=== PATIENT | male | born 1930 | race Caucasian/White ===

== ENCOUNTER 2017-04-13 08:04 | Day surgery (SDC) | payer MEDICARE, BC ==
[~2017-04-13] VITALS: Ht 177.8 cm; Wt 63.5 kg
[2017-04-13] VITALS (8 sets, daily range): BP systolic 113–136; BP diastolic 41–86
[2017-04-13] MEDS ORDERED: ASPIRIN81 MG ORAL (08:59)
[2017-04-13] MEDS ORDERED: ANTACID GT (08:59)
[2017-04-13] MEDS ORDERED: SIMVASTATIN20 MG ORAL (08:59)
[2017-04-13] MEDS ORDERED: Propofol 200mg/20ml IV ONE (10:00)
[2017-04-13] MEDS ORDERED: Lidocaine 1% MPF 10mg/ml 5ml ONE (10:00)
[2017-04-13] MEDS ORDERED: Midazolam 2mg/2ml Inj ONE (10:00)
[2017-04-13] MEDS ORDERED: LR 1000ml ONE (10:00)
[2017-04-13] MEDS ORDERED: Alfentanil 2ml Inj ONE (10:00)
[2017-04-13] MEDS ORDERED: LR 1000ml 1,000 ML IVLG SCH (10:22)
--- NOTE | 2017-04-13 10:22 | Anethesia Preoperative Eval ---
Anesthesia Pre-op PMH/ROS General Date of Evaluation: Apr 13, 2017 Anesthesiologist: Adin ASA Score: ASA 3 Mallampati Score Class I : Soft palate, uvula, fauces, pillars visible Class II: Soft palate, uvula, fauces visible Class III: Soft palate, base of uvula visible Class IV: Only hard plate visible Mallampati Classification: Class II Surgeon: Jarrett Diagnosis: Abd Pain Surgical Procedure: EUS/EGD G Tube Change Anesthesia History: none Family History: no anesthesia problems Allergies: Coded Allergies: No Known Allergies (Unverified , 04/10/17) Medications: see eMAR Past Medical History Cardiovascular: Reports: HTN Gastrointestinal/Genitourinary: Reports: other - Renal, Prostate CA, Colon SX, Ulcerative Colitis Anesthesia Pre-op Phys. Exam Physician Exam Last Vital Signs Date Time Temp Pulse Resp B/P (MAP) Pulse Ox O2 Delivery O2 Flow Rate FiO2 04/13/17 09:01 98.6 53 20 136/59 98 Room Air Constitutional: NAD Neurologic: CN 2-12 intact Cardiovascular: RRR Respiratory: CTA Gastrointestinal: S/NT/ND Airway Exam Mallampati Score: Class II MO: limited ROM: limited Teeth: missing, intact Anesthesia Pre-op A/P Risk Assessment & Plan Assessment: ASA 3 Plan: GA Status Change Before Surgery: Donny Maciel MD Apr 13, 2017 10:22
--- NOTE | 2017-04-13 10:25 | Immediate Post-Op Evaluation ---
Immediate Post-Op Evalulation Immediate Post-Op Evalulation Procedure: EUS/EGD G Tube Change Date of Evaluation: Apr 13, 2017 Time of Evaluation: 11:07 IV Fluids: 700 LR Blood Products: 0 Estimated Blood Loss: 1 Urinary Output: 0 Blood Pressure Systolic: 116 Blood Pressure Diastolic: 43 Pulse Rate: 47 Respiratory Rate: 16 O2 Sat by Pulse Oximetry: 97 Temperature (Fahrenheit): 97.3 Pain Score (1-10): 1 Nausea: No Vomiting: No Complications 0 Patient Status: awake, reacts, patent, none Hydration Status: adequate Donny Oakley MD Apr 13, 2017 10:25
--- NOTE | 2017-04-13 10:26 | 48 Hour Post Anesthesia Eval ---
Post Anesthesia Evaluation Procedure: EUS/EGD G Tube Change Date of Evaluation: Apr 13, 2017 Time of Evaluation: 13:11 Blood Pressure Systolic: 143 0: 74 Pulse Rate: 56 Respiratory Rate: 18 Temperature (Fahrenheit): 98.3 O2 Sat by Pulse Oximetry: 95 Airway: patent Nausea: No Vomiting: No Pain Intensity: 1 Hydration Status: adequate Cardiopulmonary Status: Stable Mental Status/LOC: patient returned to baseline Follow-up Care/Observations: 0 Post-Anesthesia Complications: 0 Follow-up care needed: ready to discharge Donny Oakley MD Apr 13, 2017 10:26
[2017-04-13] MEDS ORDERED: Norco 5mg/325mg tab ORAL PRN (10:30)
[2017-04-13] MEDS ORDERED: fentaNYL 100 mcg/2 mL IV PRN (10:30)
[2017-04-13] MEDS ORDERED: Hydromorphone 0.5mg/0.5ml inj IVP PRN (10:30)
[2017-04-13] MEDS ORDERED: Metoclopramide 10mg/2ml Inj IVP PRN (10:30)
[2017-04-13] MEDS ORDERED: Ketorolac 60mg Inj IV PRN (10:30)
[2017-04-13] MEDS ORDERED: Norco 7.5mg/325mg tab ORAL PRN (10:30)
[2017-04-13] MEDS ORDERED: Ketorolac 30mg Inj IV PRN (10:30)
[2017-04-13] MEDS ORDERED: Midazolam 2mg/2ml Inj IVP PRN (10:30)
[2017-04-13] MEDS ORDERED: Atropine Inj 1mg/10ml Syr IV PRN (10:30)
[2017-04-13] MEDS ORDERED: LORazepam Inj 2mg/ml 1ml IV PRN (10:30)
[2017-04-13] MEDS ORDERED: DiphenhydrAMINE 50mg/ml Inj IVP PRN (10:30)
[2017-04-13] MEDS ORDERED: oxyCODONE HCL/Acetaminophen 5/325mg ORAL PRN (10:30)
--- NOTE | 2017-04-13 10:42 | Endoscopy Procedure Note ---
Endoscopy Procedure Note Indication for Procedure: achalasia Procedures Performed: EGD, other - EUS Operative Findings/Diagnosis: duodenitis Specimen: yes Pt Tolerated Procedure Well: Yes Estimated Blood Loss: none Anesthesiologist: sathish Anesthesia: MAC Implant(s) used?: No 50 yrs or older w/o bx or poly: Not Applicable 10yrs. F/U not recommended: Not Applicable JULIO CESAR RUGGIERO Apr 13, 2017 10:42
--- NOTE | 2017-04-13 15:04 | Pre-Procedure Note/Attestation ---
Pre-Procedure Note/Attestation Complete Prior to Procedure Planned Procedure: not applicable Procedure Narrative: egd/eus Indications for Procedure Pre-Operative Diagnosis: achalasia Attestation I attest that I discussed the nature of the procedure; its benefits; risks and complications; and alternatives (and the risks and benefits of such alternatives ), prior to the procedure, with the patient (or the patient's legal car sales representative). I attest that, if there was a reasonable possibility of needing a blood transfusion, the patient (or the patient's legal car sales representative) was given the [facility] standardized written summary, pursuant to the [place] Blood Safety Act ([place] Health and Safety Code # 1645, as amended). I attest that I re-evaluated the patient just prior to the surgery and that there has been no change in the patient's H&P, except as documented below: JULIO CESAR RUGGIERO Apr 13, 2017 15:04
--- NOTE | 2017-04-13 15:05 | Short Stay Surgery H&P ---
History of Present Illness History of Present Illness Chief Complaint dysphagia DEBORAH Beltran is a 86 year old male who was admitted on for Submucosa Lesion Patient History Allergies: Coded Allergies: No Known Allergies (Unverified , 04/10/17) PAST MEDICAL HISTORY: (1) Achalasia Past Surgeries: Social History: Medication History Scheduled Aspirin* (Aspirin*), 81 MG ORAL DAILY, (Reported) Simvastatin (Zocor), 20 MG ORAL BEDTIME, (Reported) [Antacid], 20 MG GT BID, (Reported) Review of Systems Cardiovascular: Reports: no symptoms Respiratory: Reports: no symptoms Skeletal: Reports: no symptoms Gastrointestinal: Reports: gastro esophageal reflux disease Genitourinary: Reports: no symptoms Neurologic: Reports: no symptoms Endocrine: Reports: no symptoms Hematologic: Reports: no symptoms Physical Exam Vital Signs Last Vital Signs Date Time Temp Pulse Resp B/P (MAP) Pulse Ox O2 Delivery O2 Flow Rate FiO2 04/13/17 12:00 59 18 127/60 100 Room Air 04/13/17 11:35 97.7 04/13/17 11:05 6.0 Skin: normal HENT: normal Heart: normal Lungs: normal Abdomen: normal Extremities: normal Plan Plan of Care egd/eus Final Diagnosis: Attestation Are the patient's medical conditions optimized for surgery? Attestation Response: yes JULIO CESAR RUGGIERO Apr 13, 2017 15:05
--- NOTE | 2017-04-13 20:15 | Cardiology Report ---
APPROVED REPORT EKG Measurement Heart [id number] Sinus bradycardia Right bundle branch block Abnormal ECG
--- NOTE | 2017-04-14 08:30 | Procedure Note ---
DATE OF PROCEDURE: 04/13/2017 SURGEON: Al Farias M.D. PROCEDURE: Upper endoscopy with biopsy and endoscopic ultrasound. ANESTHESIA: Per Dr. Oakley. INSTRUMENT: Olympus adult flexible upper endoscope and EUS radial scope. INDICATION: Achalasia. The procedure, risks, benefits, and possible consequences, including hemorrhage, aspiration, perforation and infection, and alternative treatments, were explained to the patient/legal guardian by Dr. Al Farias and the patient/legal guardian understood and accepted these risks. DESCRIPTION OF PROCEDURE: After informed consent was obtained and the patient was adequately sedated, Olympus upper endoscope was advanced from mouth into the esophagus. There was no evidence of any obvious esophagitis. Esophagus was minimally dilated. At the GE junction, which was about 39 to 40 cm from the incisors, there was limited at this time at the GE junction given prior history of possible achalasia, but the scope was passed through without any significant pressure. In the stomach, there was evidence of diffuse gastritis. The patient had a Ansari catheter at the site of the G-tube, which was removed and a 20-[place] balloon type of G-tube was replaced given the Ansari can migrate so replaced with a G-tube to prevent migration. Then, the scope was advanced to the duodenal bulb and second portion of duodenum. The stricture that was mentioned in prior endoscopies at the pylorus was not seen in this admission. 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 We actually deflated the stomach, turned off the air, and was able to pass the scope into the duodenal bulb and second portion of the duodenum without any problems. The duodenal wall had some evidence of inflammatory changes suggestive of duodenitis. Biopsy from this area was obtained. At this time, the upper endoscope was retrieved and EUS radial scope was introduced. The scanning of the GE junction showed mild thickening of the esophageal wall at the GE junction. The esophageal wall was measured roughly about 5 mm in maximum diameter in this area. There was no obvious infiltrating tumor or lymph nodes were seen in this area. The patient tolerated the procedure very well without any complication. SUMMARY OF FINDINGS: 1. Duodenitis, status post biopsy. 2. Status post removal of the Ansari from the G-tube site and replaced it with a 20-[place] balloon type of a G-tube. 3. Distal esophageal wall thickening at the GE junction. Esophageal wall was measured in the maximum diameter to about 5 mm without any obvious infiltrating tumor or lymphadenopathy in this area. The patient tolerated the procedure very well without any complication. RECOMMENDATIONS: Follow up biopsy results. We will discuss with the surgeon, Dr. James for further management of this patient. I want to thank, Dr. James, for this kind referral. Al Farias M.D. DR: ROSSY JOB#: [id number] CC: May James MD
== END 2017-04-13 12:25 | disposition home or self-care (01) ==
LOC: GAS 08:04
DX: K29.80 Duodenitis without bleeding (principal); Z79.82 Long term (current) use of aspirin; K21.9 Gastro-esophageal reflux disease without esophagitis; I10 Essential (primary) hypertension; Z85.46 Personal history of malignant neoplasm of prostate; Z85.53 Personal history of malignant neoplasm of renal pelvis; K22.0 Achalasia of cardia
CPT/HCPCS: 43237; 43239; 43246; 93005; J2250; J2704; J3490; J7120; 94003; 94150